=== PATIENT | female | born 1990 | race African-American/Black ===

== ENCOUNTER 2016-11-18 02:34 | Inpatient (IN) | payer OTHER ==
--- NOTE | ~2016-11-18 | HP ---
Unit #: [id number] #: [id number] Patient: JHON ALMAZAN [id number] [place] [address] [id number] MR#: [id number] NAME: JHON ALMAZAN ROOM: P254 Age: 26 Sex: F Admission Date: 11/18/2016 : 1990 Attending Physician: Justin Leary M.D. Admitting Physician: Justin Leary M.D. Primary Care Physician: Primary Care Physician No HISTORY AND PHYSICAL HISTORY OF PRESENT ILLNESS Jhon is a 26 year old admitted to [address] [place] [address] with depression and verbalizing wanting to hurt herself. PAST MEDICAL HISTORY 1. Obesity 2. High blood pressure 3. Rheumatoid arthritis PAST SURGICAL HISTORY Left ankle. ALLERGIES No known drug allergies. SOCIAL HISTORY She denies cigarettes, alcohol and illicit drug use. FAMILY HISTORY Medically noncontributory. REVIEW OF SYSTEMS CONSTITUTIONAL: No fever or chills. HEENT: Denies any sore throat, ear pain or runny nose. CARDIOVASCULAR: Denies chest pain, irregular heart rhythm or palpitations. CHEST: Denies shortness of breath or cough. No hemoptysis. GASTROINTESTINAL: Denies nausea, vomiting, diarrhea or chronic constipation. ENDOCRINE: Denies history of increased thirst or urination. No recent significant weight loss or gain. GENITOURINARY: Denies dysuria, frequency, or hematuria. SKIN: Denies any rashes. HEMATOLOGIC: Denies history of increased bleeding or bruising. MUSCULOSKELETAL: Denies any hot, swollen joints. No generalized muscle pain. NEUROLOGIC: Denies problems with vision or speech. No frequent, severe headaches. No numbness, tingling or weakness in any extremities. Denies loss of bladder or bowel control. CURRENT MEDICATIONS 1. HCTZ 25 mg q day 2. Zestril 10 mg q day Unit #: [id number] #: [id number] Patient: JHON ALMAZAN 3. Diclofenac 75 mg b.i.d. 4. Milk of Magnesia p.r.n. 5. Maalox p.r.n. 6. Tylenol p.r.n. 7. Vitamin D 1000 units q day 8. KCL 10 mEq q day PHYSICAL EXAMINATION GENERAL: Alert, obese, in no apparent distress. VITAL SIGNS: Blood pressure 150/100, heart rate 76, respirations 16, temperature 98.6. WEIGHT: 184 pounds. HEIGHT: 5'3". SKIN: Warm and dry without rash or lesion. HEENT: Normocephalic. TMs not viewed. Oral and nasal passages clear. Conjunctivae clear. Pupils equal, round and reactive to light and accommodation. Extraocular movements intact. NECK: Supple without lymphadenopathy or thyromegaly. HEART: Regular rate and rhythm without murmur. LUNGS: Clear. ABDOMEN: Soft, nontender. : Not done. EXTREMITIES: No evidence of cyanosis, clubbing or edema. Moves all extremities without focal deficit. NEUROLOGICAL: Grossly within normal limits. Cranial Nerves: II: Visual gunter are intact. III, IV AND : Extraocular movements are intact. Pupils are equal, round and reactive to light. V: Facial sensation is grossly normal. VII: Facial movements and expression are normal. VIII: Auditory acuity grossly intact. IX, X: Uvula is midline. Phonation is normal. XI: Patient shrugs shoulders and turns head normally. XII: Tongue protrudes in the midline. Sensory and Motor Function: Sensory and motor sensation is grossly normal. Motor: moves all extremities well. Coordination: Gait is normal. Deep Tendon Reflexes: Intact. IMPRESSION Psychiatric admission RECOMMENDATIONS PSYCHIATRIC: Per psychiatrist. MEDICAL: 1. I see no contraindications to participating in facility's activities. 2. Check a BMP. Pay special attention to potassium. She is on Zestril and KCL. MEDICAL PROGNOSIS Good. MEDICAL CONDITION Stable. Dictated by... Unit #: [id number] #: [id number] Patient: JHON ALMAZAN Zully Duke, P.A.-C. for Trina Dawson/hermelindo TD: 11/18/2016 22:56 JOB #: [id number] HISTORY AND PHYSICAL Page 1 of 1 X Zully Duke HISTORY AND PHYSICAL
--- NOTE | ~2016-11-18 | PA ---
Unit #: [id number] #: [id number] Patient: TONY ALMAZAN [id number] [facility] [address] [place] [address] [id number] MR#: [id number] NAME: TONY ALMAZAN ROOM: P254 Age: 26 Sex: F Admission Date: 11/18/2016 : 1990 Date of Assessment: Attending Physician: Justin Leary M.D. Admitting Physician: Justin Leary M.D. Primary Care Physician: Primary Care Physician No PSYCHIATRIC ASSESSMENT DATE OF SERVICE 11/18/2016. IDENTIFYING DATA Ms. Almazan is a 26-year-old single female, who is a resident of [place], [place], and was self-referred to the hospital on a voluntary basis. CHIEF COMPLAINT "I've been thinking about suicide. I'm battling with depression." HISTORY OF PRESENT ILLNESS Ms. Almazan is a 26-year-old female, who was self-referred to the hospital and reporting increasing depression, low self-esteem, and feelings of hopelessness and suicidal ideations. She stated that she has been thinking about suicide for about a week and precipitators include "just a build up of different things," however, the patient did not elaborate any further and was unable to identify any particular triggers or stressor. She reports that she has history of suicide attempt in 2016, stating "I cut myself in my hand. This time I will use a knife to cut my stomach." She was initially at [facility] in [place], [place] due to a mobile clinician on-call initially evaluating the patient and the patient came to the ER complaining of lower abdominal pain and she was medically cleared and no major issues were noticed and she then started voicing suicidal thoughts and psychiatric evaluation was conducted and the patient told the ER nurse that she was going to either cut herself or stab herself with a knife and that she has history of self-harm by cutting and was exhibiting manipulative behavior with attention seeking tendencies and as such, recommendation for inpatient level of care for safety and stabilization was made and the patient was transferred to us. SUBSTANCE ABUSE HISTORY The patient denies any history of alcohol or drug abuse. PAST PSYCHIATRIC HISTORY The patient has had history of inpatient psychiatric hospitalization several times in [facility] including the [facility]. Review of the medical records indicate that currently she is on unknown medication as she was unable to elaborate the names of the medications and as such, appears to be not compliant with treatment recommendations and review of the medical records also does not show the patient following up Unit #: [id number] #: [id number] Patient: TONY ALMAZAN with any psychiatrist on an outpatient basis. PAST MEDICAL HISTORY No acute or chronic medical illnesses. ALLERGIES No known medication allergies. PERSONAL AND SOCIAL HISTORY A 26-year-old female, who reports that she lives by herself and has poor social support system. MENTAL STATUS EXAMINATION Young female who was casually dressed with fair personal hygiene, appears to be in no acute distress or discomfort. She was awake and alert on interaction with intact orientation to time, place, and person. Her mood was anxious with a congruent affect. Her speech was slow and restricted in content. She reports having suicidal ideation, but denies any homicidal ideations, and also denies any auditory or visual hallucinations. Her insight and judgment remain significantly impaired. DIAGNOSTIC IMPRESSION Psychiatric: Major depressive disorder, recurrent, moderate, without psychotic features. Medical: None. Stressors: Moderate psychosocial stressors. TREATMENT PLAN 1. The patient has presented with history of mood disorder and has been decompensating. We will recommend inpatient hospitalization for safety and stabilization. We will start her back on her home medications and we will recommend getting records from her previous pharmacy about her medications and we will recommend restarting those medications and monitoring response. 2. Supportive therapy was provided to the patient. ESTIMATED LENGTH OF STAY 5 to 7 days. ABILITY TO HELP SELF Limited. WILLINGNESS TO HELP SELF The patient appears to be willing to help self. STRENGTHS 1. Communicative. 2. Cooperative. PROBLEMS 1. Chronic dysphoric symptoms. 2. Chronic chemical dependency. 3. Poor social support system. DISCHARGE CRITERIA This will be contingent upon the patient's ability to show resolution of her depression and anxiety and her ability to stay safe to herself, particularly after discharge from the hospital. Unit #: [id number] #: [id number] Patient: TONY ALMAZAN Dictated by... Trina Gill/collin TD: 11/18/2016 08:00 JOB #: [id number] PSYCHIATRIC ASSESSMENT Page 1 of 1 X Justin Leary MD PSYCHIATRIC ASSESSMENT
--- NOTE | ~2016-11-18 | PN ---
Unit #: [id number] #: [id number] Patient: TONY ALMAZAN [id number] [facility] [address] [place] [address] [id number] I MR#: [id number] NAME: TONY ALMAZAN ROOM: P254 Age: 26 Sex: F Admission Date: 11/18/2016 : 1990 Attending Physician: Justin Leary M.D. Admitting Physician: Justin Leary M.D. Primary Care Physician: Primary Care Physician Torri ROD NOTES DATE OF SERVICE: 11/19/2016 SUBJECTIVE Ms. Almazan is a 26-year-old female who was seen today and chart was reviewed, and case was discussed with the staff. She has been anxious, withdrawn, and rather seclusive to herself. Meanwhile, she has been cooperative with treatment recommendations and has been taking the medications and tolerating them fairly well with no reported side effects. MENTAL STATUS EXAMINATION Young female who was casually dressed with fair personal hygiene, appears to be in no acute distress or discomfort. She was awake and alert with impaired attention and concentration. Her mood was anxious with a congruent affect. She denies any suicidal or homicidal ideations. Her insight and judgment remain slightly impaired. TREATMENT PLAN 1. We will continue on her current medications and treatment protocol. We will monitor her response to medications and make further adjustments as needed. 2. We will continue to follow up. Dictated by... Trina Gill/collin TD: 11/20/2016 13:24 JOB #: [id number] [facility] PROGRESS NOTES Page 1 of 1 X Justin Leary MD X PROGRESS NOTE
--- NOTE | ~2016-11-18 | DS ---
Unit #: [id number] #: [id number] Patient: TONY ALMAZAN [id number] [facility] [address] [place] [address] [id number] I MR#: [id number] NAME: TONY ALMAZAN ROOM: P254 Age: 26 Sex: F Admission Date: 11/18/2016 : 1990 Discharge Date: 11/21/2016 Attending Physician: Justin Leary M.D. Primary Care Physician: Primary Care Physician No DISCHARGE SUMMARY IDENTIFYING DATA Ms. Shah is a 26-year-old single female, who is a resident of [place], [place], and was transferred to us on a voluntary basis. DISCHARGE DIAGNOSES Psychiatric: Major depressive disorder, recurrent, moderate, without psychotic features. Medical: Hypertension. Stressors: Moderate psychosocial stressors. HISTORY OF PRESENT ILLNESS Please see initial psychiatric evaluation for details. PAST PSYCHIATRIC HISTORY Please see initial psychiatric evaluation for details. PAST MEDICAL HISTORY Please see initial psychiatric evaluation for details. HOSPITAL COURSE The patient was admitted to the adult psychiatric unit at [facility] and was oriented to the hospital environment. Routine p.r.n. medications were initiated. She was started back on her home medications and was encouraged to participate in therapy groups and was closely monitored. She was not really planning to get into any psychotropic medications, though was able to show a fairly decent therapeutic response to supportive therapy and group therapy, and as such, it was decided that she will be discharged home and will continue treatment on an outpatient basis. DISCHARGE MEDICATIONS Zestril 10 mg a day for hypertension, Oretic 25 mg a day for hypertension, and Klor-Con 10 mg a day for hypokalemia. DISCHARGE CONDITION Stable. PROGNOSIS Fair. Dictated by... Justin Leary M.D. Unit #: [id number] #: [id number] Patient: TONY ALMAZAN IAA/modl TD: 11/21/2016 07:01 JOB #: [id number] DISCHARGE SUMMARY Page 1 of 1 X Justin Leary MD X DISCHARGE SUMMARY
--- NOTE | ~2016-11-18 | PN ---
Unit #: [id number] #: [id number] Patient: TONY ALMAZAN [id number] [facility] [address] [place] [address] [id number] MR#: [id number] NAME: TONY ALMAZAN ROOM: P254 Age: 26 Sex: F Admission Date: 11/18/2016 : 1990 Attending Physician: Justin eLary M.D. Admitting Physician: Justin Leary M.D. Primary Care Physician: Primary Care Physician Torri GOODEN PROGRESS NOTES DATE November 20, 2016 DISCUSSION Ms. Almazan is a 26-year-old female, who was seen today and chart was reviewed and the case was discussed with the staff. The patient has been anxious, withdrawn, but has not shown any agitation or irritability or behavioral problems and has been cooperative with the treatment recommendations and has been taking the medications and tolerating them fairly well with no reported side effects. MENTAL STATUS EXAMINATION Young female, who was casually dressed with fair personal hygiene and appears to be in no acute distress or discomfort. The patient was awake and alert with impaired attention and concentration. Her mood was anxious and depressed with a congruent affect. The patient denies any suicidal or homicidal ideations. Her insight and judgment remain slightly impaired. TREATMENT PLAN 1. We will continue her on her current medications and treatment protocol, and will monitor her response to the medications, and make further adjustments as needed. 2. We will continue to followup. Dictated by... Trina Gill/wero TD: 11/21/2016 11:52 JOB #: [id number] Unit #: [id number] #: [id number] Patient: TONY ALMAZAN PROGRESS NOTES Page 1 of 1 X Justin Leary MD PROGRESS NOTE
[2016-11-19 11:26] LABS: BASOPHIL# 0.1 X10e3 (0-0.3); BASOPHIL% 1.1 % (0-2.5); DIFF IND NO; EOSINOPHIL# 0.5 X10e3 (0-0.7); EOSINOPHIL% 8.4 % (0.0-7.0); HEMATOCRIT 42.9 % (35.0-45.0); HEMOGLOBIN 13.7 gm/dL (12.0-16.0); LYMPHOCYTE# 2.8 X10e3 (1.0-3.5); LYMPHOCYTE% 44.1 % (17.0-45.0); MEAN CORPUSCULAR HEMOGLOBIN 27.7 PG (28-34); MEAN CORPUSCULAR HGB CONC 31.8 g/dL (30-36); MEAN PLATELET VOLUME 10.2 FL (6.5-11.5); MONOCYTE# 0.7 X10e3 (0-1.0); MONOCYTE% 10.5 % (3.0-12.0); NEUTROPHIL# 2.3 X10e3 (1.5-7.1); NEUTROPHIL% 35.9 % (40-75); PLATELET COUNT 193 X10e3 (140-420); RED BLOOD COUNT 4.94 X10e (3.90-5.30); RED CELL DISTRIBUTION WIDTH 13.5 % (11.0-15.5); WHITE BLOOD COUNT 6.4 X10e3 (4.0-10.5)
[2016-11-19 12:24] LABS: THYROID STIMULATING HORMONE 0.48 uIU/ml (0.34-5.60)
[2016-11-19 12:26] LABS: ALBUMIN SERUM 3.9 g/dL (3.5-5.0); BILIRUBIN,TOTAL 0.7 mg/dL (0.2-2.0); BUN/CREATININE RATIO 15.71; CREATININE SERUM 0.7 mg/dL (0.6-1.4); GLOM FILT RATE Estimated 136.7 mL/min (>60); POTASSIUM 3.9 mmol/L (3.5-5.1); PROTEIN TOTAL SERUM 7.2 g/dL (6.0-8.3)
[2016-11-19 12:33] LABS: FREE THYROXIN (T4) 1.33 ng/dL (0.58-1.64)
[2016-11-21 09:40] LABS: URINE APPEARANCE CLEAR; URINE BILIRUBIN NEG (NEG); URINE BLOOD 3+ (NEG); URINE COLOR YELLOW; URINE GLUCOSE NEG (NEG); URINE KETONE NEG (NEG); URINE LEUKOCYTE ESTERASE TRACE (NEG); URINE NITRATE NEG (NEG); URINE PROTEIN NEG (NEG); URINE SPECIFIC GRAVITY 1.009 (1.003-1.035); URINE UROBILINOGEN 0.2 MG/DL (NEG)
[2016-11-21 09:42] LABS: URBCS1 AUWI 50-100 /[HPF] (0-2); URINE BACTERIA AUWI NEG (NEGATIVE); URINE SQUAMOUS EPITHELIAL CELL NONE SEEN /[HPF]
[2016-11-21 10:25] LABS: AMPHETAMINE NEG (NEG); BARBITURATES NEG (NEG); BENZODIAZEPINES NEG (NEG); COCAINE NEG (NEG); MARIJUANA NEG (NEG); OPIATES NEG (NEG); TRICYCLIC ANTIDEPRESSANTS NEG (NEG); U METHADONE NEG (NEG)
== END 2016-11-21 16:20 | disposition home or self-care (01) | DRG 885 ==
LOC: P2L 02:34
PROVIDERS: Psychiatry & Neurology Psychiatry
DX: F33.1 Major depressive disorder, recurrent, moderate (principal); I10 Essential (primary) hypertension
CPT/HCPCS: 80053; 80307; 81003; 84439; 84443; 85025